=== PATIENT | female | born 1965 | race Caucasian/White ===

== ENCOUNTER 2018-04-06 11:27 | Emergency (ER) | payer OTHER ==
[~2018-04-06] VITALS: Ht 167.6 cm; Wt 77.1 kg
[~2018-04-06 11:27] MED LIST: ACET-2619 PO; BISA10SU1 RC; CEFT1PDS43 IV; COL100L GT; COM25S RC; DIL100L GT; GLAT20KI SUBQ; LAM25 PO; NUTR-813 GT; SIME80CT70 GT; VIC GT; ZALE10CA GT; [UNRECOGNIZED DRUG - CODE] GT
--- NOTE | 2018-04-06 11:27 | NUR ---
PT BIBA BLS TO BED 6
[2018-04-06 11:30] VITALS: BP 122/82
--- NOTE | 2018-04-06 12:07 | NUR ---
PATIENT BIBA. FROM [facility] DUE TO TYCHCADIA AND TACHPNEA, PT IS OPEN EYES ONLY, APHSIC, RESPONDS TO PAIFUL STIMILI, UNABLE TO FOLLOW COMMANDS, FLACC 0, NO S/S OF DISTRESS, TACHPNEA NOTED, ON O2 AT 4L VIA NC, NO S/S OF CHEST PAIN, TYCHCADIA NOTED, EXTENDED ABDOMEN WITH ACTIVE BOWEL SOUNDS, GT IN PLACE, INCONTINENT WITH B&B'S, SKIN IS INTACT,WARM AND DRY TO TOUCH, SEVERE WEAKNESS TO ALL EXTREMITES. PATIENT POSITIONED FOR COMFORT; HOB ELEVATED; BEDRAILS UP X2; BED DOWN. ER MD MADE AWARE OF PT STATUS.
--- NOTE | 2018-04-06 12:45 | NUR ---
# 14 FR Urinary catheter inserted utilizing sterile technique. Immediate return of 200 ml NICOLE CLEAR urine noted. Urine sample collected and sent to lab. Pt tolerated procedure WELL.
[2018-04-06 12:47] LABS: HEMATOCRIT 51.2 % (36-48); HEMOGLOBIN 16.8 g/dL (12.0-16.0); MEAN CORPUSCULAR HEMOGLOBIN 29 pg (27-31); MEAN CORPUSCULAR HGB CONC 33 g/dL (33-37); MEAN CORPUSCULAR VOLUME 88.7 fL (80-94); PLATELET COUNT (AUTO) 333 K/uL (140-450); RED BLOOD CELL COUNT(AUTO) 5.78 MIL/uL (4.20-5.40); RED CELL DISTRIBUTION WIDTH 13.3 % (11.6-13.7); WHITE BLOOD COUNT (AUTO) 26.5 K/uL (4.8-10.8)
[2018-04-06 13:03] LABS: LYMPHOCYTES % (MANUAL) 8 % (20-46); MONOCYTES % (MANUAL) 2 % (5-12)
[2018-04-06 13:11] LABS: PROTHROMBIN TIME 10.4 secs (10.8-13.4)
[2018-04-06 13:24] LABS: ALBUMIN 3.1 g/dL (3.4-5.0); ANION GAP 13.7 (8-16); CARBON DIOXIDE 30.4 mmol/L (21-32); CREATININE 0.6 mg/dL (0.6-1.3); POTASSIUM 4.1 mmol/L (3.5-5.1); TOTAL BILIRUBIN 0.8 mg/dL (0.0-1.0)
[2018-04-06 13:31] LABS: BILIRUBIN,URINE NEGATIVE (NEGATIVE); BLOOD, URINE TRACE-I (NEGATIVE); COLOR,URINE YELLOW (YELLOW); LEUKOCYTE ESTERASE ,URINE 1+ (NEGATIVE); NITRITE, URINE NEGATIVE (NEGATIVE); PH,URINE 7.5 (5.0-9.0); UGLUCOSE NEGATIVE (NEGATIVE)
[2018-04-06 13:45] LABS: RBC,URINE 11-20 (MOD) /HPF (0-5); WBC,URINE TOO MANY TO COUNT /HPF (0-5)
[2018-04-06 13:47] LABS: APPEARANCE,URINE SLIGHTLY CLOUDY (CLEAR)
--- NOTE | 2018-04-06 14:00 | NUR ---
PT IS RESTING IN BED, NO S/S OF DISTRESS, VSS, FLACC 0.
[2018-04-06] MEDS ORDERED: LEVOFLOXACIN 750 MG/D5W PREMIX 150 ML IV ONE (14:20)
[2018-04-06] MEDS ORDERED: NACL 0.9% 1,000 ML IV ONE ×2 (14:45)
[2018-04-06] MEDS ORDERED: NACL 0.9% 1,000 ML IV SCH (14:46)
[2018-04-06] MEDS ORDERED: ACETAMINOPHEN 325 MG TAB PO PRN (14:50)
[2018-04-06] MEDS ORDERED: ZOLPIDEM 5 MG TAB PO PRN (14:50)
[2018-04-06] MEDS ORDERED: ONDANSETRON 4 MG/2 ML VIAL IVP PRN (14:50)
[2018-04-06] MEDS ORDERED: HYDROcodone/APAP 7.5/325 MG 1 TAB PO PRN (14:50)
--- NOTE | 2018-04-06 15:00 | NUR ---
RED RUSHES NOTED AROUND THE IV SITE ON HAND TOWARDS TO FOREARM. LEVOQUIN HELD AT THIS TIME, ED MD MADE AWARE.
[2018-04-06] MEDS ORDERED: diphenhydrAMINE 50 MG/ML VIAL IVP ONE (15:25)
[2018-04-06 17:30] VITALS: BP 134/82
--- NOTE | 2018-04-06 17:30 | NUR ---
REPORT GIVEN TO CHRISTIE COHEN RN AT [facility], PT IS GOING TO ROOM 2158.
--- NOTE | 2018-04-06 17:35 | NUR ---
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
--- NOTE | 2018-04-06 17:55 | NUR ---
TIME RECORDER CALLED TO BEDSIDE TO ASSESS FOR PULMONARY HYGIENE PATIENT ASSESSMENT SATURATION 91% ON SUPPLEMENTAL OXYGEN AT 15 LPM VIA NON REBREATHER BREATH SOUNDS COARSE RHONCHI BILATERAL USING STERILE TECHNIQUE APPLIED LUBRICANT TO THE TIP OF A 14FR SUCTION CATHETER INSERTED INTO RIGH AND LEFT NARES OBTAINED COPIOUS AMOUNTS DARK RED (GASTRIC) AND YELLOW SECRETIONS SATURATION NOW ASCENDING TO 96% BREATH SOUNDS CLEAR TOFEW RALES AT LEFT LOWER LOBE PATIENT TOLERATED SUCTIONING PROCEDURE WELL WITHOUT ADVERSE REACTIONS NOTED ENEDINA SHARMA AWARE
[2018-04-06] MEDS ORDERED: DOCUSATE SODIUM 100 MG GELCAP PO SCH (21:00)
== END 2018-04-06 17:35 | disposition home or self-care (01) ==
LOC: MED 11:27
DX: K56.609 Unspecified intestinal obstruction, unspecified as to partial versus complete obstruction (principal); N39.0 Urinary tract infection, site not specified; N28.89 Other specified disorders of kidney and ureter; Z88.1 Allergy status to other antibiotic agents; Z88.0 Allergy status to penicillin; Z88.2 Allergy status to sulfonamides; Z79.899 Other long term (current) drug therapy
CPT/HCPCS: 36415; 36600; 71250; 74176; 80053; 81001; 82803; 83605; 83880; 84484; 85025; 85610; 85730; 87040; 87086; 93005; 96365; 96375; 99285; J1200; J1956; J7030; 96374; 99284

== ENCOUNTER 2018-11-02 13:54 | Emergency (ER) | payer OTHER ==
[~2018-11-02] VITALS: Ht 177.8 cm; Wt 81.6 kg
--- NOTE | 2018-11-02 13:55 | NUR ---
Patient STEFFANY BLS from SNF, transferred to bed 2. RN evaluating patient at bedside.
--- NOTE | 2018-11-02 14:00 | NUR ---
PT BIBA FOR CLOGGED G-TUBE; SKIN AROUND TUBE WNL;NO REDNESS OR DRIANAGE NOTED. PT NON VERBAL; NO SIGNS OF PAIN OBSERVED. MEDHX:G-TUBE, FUNCTIONAL QUADRIPLEGIC, HTN, EPILEPSY, KIDNEY STONE, MS; SEIZURE PRECAUTIONS INITIATED; PADDED SIDERAILS. CONNECTED TO STAFF ANESTHETIST; BED LOCKED AND IN LOWEST POSITION. ERMD TO EVALUATE PT.
[2018-11-02 14:02] VITALS: BP 115/73
--- NOTE | 2018-11-02 14:50 | NUR ---
MARLO HOWE AT BEDSIDE FOR NEW G TUBE PLACEMENT.
--- NOTE | 2018-11-02 15:05 | NUR ---
X RAY AT BEDSIDE FOR G-TUBE PLACEMENT
--- NOTE | 2018-11-02 16:15 | NUR ---
SPOKE WITH MEGAN SCHMIDT OCEANOGRAPHER PHYSICAL FROM [facility]. PT WILL TRANSFER BACK.
--- NOTE | 2018-11-02 16:18 | NUR ---
Patient to be transferred back to [facility]. Ambulance service has been called for transfer. ETA is 30 minutes.
[2018-11-02 16:48] VITALS: BP 112/68
--- NOTE | 2018-11-02 16:49 | NUR ---
Patient tranferred back to outside [facility] via ambulance. Pt left [facility] in a stable condition. Discharge paperwork provided.
== END 2018-11-02 16:49 ==
LOC: MED 13:54
DX: T85.598A Other mechanical complication of other gastrointestinal prosthetic devices, implants and grafts, initial encounter (principal); Z88.0 Allergy status to penicillin; Z88.1 Allergy status to other antibiotic agents; Z88.2 Allergy status to sulfonamides; Z79.899 Other long term (current) drug therapy; Z79.2 Long term (current) use of antibiotics; Z79.1 Long term (current) use of non-steroidal anti-inflammatories (NSAID); Z86.69 Personal history of other diseases of the nervous system and sense organs; Y83.8 Other surgical procedures as the cause of abnormal reaction of the patient, or of later complication, without mention of misadventure at the time of the procedure; Y92.89 Other specified places as the place of occurrence of the external cause
CPT/HCPCS: 43762; 74241; 99284; Q0092

== ENCOUNTER 2019-10-10 12:20 | Inpatient (IN) | payer OTHER ==
[~2019-10-10] VITALS: Ht 170.2 cm; Wt 51.7 kg
[2019-10-10 12:20] VITALS: BP 110/63
[~2019-10-10 12:20] MED LIST changes: -SIME80CT70 GT; +SIME80TA22 GT
--- NOTE | 2019-10-10 12:24 | NUR ---
BIBA TAKEN TO BED 10
[2019-10-10] MEDS ORDERED: NACL 0.9% 1,000 ML IV SCH (12:41)
[2019-10-10] MEDS ORDERED: LEVOFLOXACIN 500 MG/D5W PREMIX 100 ML IV ONE (12:45)
[2019-10-10] MEDS ORDERED: METO25TA GT (12:53)
[2019-10-10] MEDS ORDERED: ASCO500T95 GT (12:53)
[2019-10-10] MEDS ORDERED: KEP500L GT (12:53)
[2019-10-10] MEDS ORDERED: CRAN450T5 GT (12:53)
[2019-10-10] MEDS ORDERED: LACT1CAP59 GT (12:53)
[2019-10-10] MEDS ORDERED: GLAT20KI SUBQ (12:53)
[2019-10-10] MEDS ORDERED: MAGN400S60 PO (12:53)
[2019-10-10] MEDS ORDERED: PHEN100C3 GT (12:53)
[2019-10-10] MEDS ORDERED: SENN-72 GT (12:53)
[2019-10-10] MEDS ORDERED: MULT-1328 GT (12:53)
[2019-10-10 13:11] LABS: BASOPHILS # (AUTO) 0.1 K/uL (0.00-0.22); BASOPHILS % (AUTO) 0.6 % (0.0-2.0); HEMOGLOBIN 15.3 g/dL (12.0-16.0); LYMPHOCYTES # (AUTO) 0.9 K/uL (2.5-16.5); LYMPHOCYTES % (AUTO) 8.2 % (20.5-51.1); MEAN CORPUSCULAR HEMOGLOBIN 30 pg (27-31); MEAN CORPUSCULAR HGB CONC 34 g/dL (33-37); MEAN CORPUSCULAR VOLUME 87.4 fL (80-94); MONOCYTES # (AUTO) 1.1 K/uL (0.8-1.0); MONOCYTES % (AUTO) 10.1 % (1.7-9.3); NEUTROPHILS # (AUTO) 8.7 K/uL (1.8-7.7); NEUTROPHILS % (AUTO) 81.1 % (42.2-75.2); PLATELET COUNT (AUTO) 165 K/uL (140-450); RED BLOOD CELL COUNT(AUTO) 5.15 MIL/uL (4.20-5.40); RED CELL DISTRIBUTION WIDTH 13.5 % (11.6-13.7); WHITE BLOOD COUNT (AUTO) 10.7 K/uL (4.8-10.8)
[2019-10-10 13:33] LABS: ALBUMIN 2.8 g/dL (3.4-5.0); ANION GAP 12.7 (8-16); CARBON DIOXIDE 28.4 mmol/L (21-32); CREATININE 0.6 mg/dL (0.6-1.3); POTASSIUM 4.1 mmol/L (3.5-5.1); TOTAL BILIRUBIN 0.3 mg/dL (0.0-1.0)
--- NOTE | 2019-10-10 13:36 | NUR ---
XRAY IS AT BEDSIDE.
--- NOTE | 2019-10-10 14:14 | NUR ---
SMALL SOFT BM---CLEANED PT PRIOR TO STRAIGHT CATH NO BREAK IN SKIN NOTED IN THE BACK
[2019-10-10 15:43] LABS: APPEARANCE,URINE CLOUDY (CLEAR); BILIRUBIN,URINE NEGATIVE (NEGATIVE); BLOOD, URINE TRACE-I (NEGATIVE); COLOR,URINE YELLOW (YELLOW); LEUKOCYTE ESTERASE ,URINE TRACE (NEGATIVE); NITRITE, URINE NEGATIVE (NEGATIVE); PH,URINE 7.5 (5.0-9.0); UGLUCOSE NEGATIVE (NEGATIVE)
[2019-10-10] MEDS: NACL 0.9% 1,000 ML IV SCH (15:45)
--- NOTE | 2019-10-10 16:39 | NUR ---
INFLUENZA SWAB COLLECTED
--- NOTE | 2019-10-10 17:09 | NUR ---
REPORT GIVEN TO URSULA GUZMAN
--- NOTE | 2019-10-10 17:11 | NUR ---
OBTAINED REPORT FROM MURRAY GUZMAN FOR CONTINUITY OF CARE
--- NOTE | 2019-10-10 17:18 | NUR ---
PT RESTING IN BED, SIDE RAIL X2
--- NOTE | 2019-10-10 19:20 | NUR ---
RECEIVED REPORT FROM MEGAN VERGARA FOR CONTINUATION OF CARE.
--- NOTE | 2019-10-10 19:29 | NUR ---
PT RESTING IN BED, LOCKED AND IN LOWEST POSITION ,HOB ELEVATED , SIDE RAIL X2 FOR PT SAFETY . VISIBLE RISE AND FALL OF CHEST, RR EVEN AND UNLABORED , PT CONNECTED TO TELEMONITORING.
--- NOTE | 2019-10-10 21:17 | NUR ---
PT RESTING IN BED, LOCKED AND IN LOWEST POSITION ,HOB ELEVATED, SIDE RAIL X2 FOR PT SAFETY, VISIBLE RISE AND FALL OF CHEST, RR EVEN AND UNLABORED, VSS.
--- NOTE | 2019-10-10 23:27 | NUR ---
DR. MATHEWS AT BEDSIDE FOR EVALUATION.
[2019-10-10] MEDS ORDERED: MAGNESIUM HYDROXIDE 2400 MG/30 ML UDC PO PRN (23:55)
[2019-10-10] MEDS ORDERED: bisacodyL 10 MG SUPP RC PRN (23:55)
--- NOTE | 2019-10-10 23:57 | NUR ---
PT SLEEPING , BED LOCKED AND IN LOWEST POSITION ,HOB ELEVATED, SIDE RAIL X2 FOR PT SAFETY, AROUSABLE TO VERBAL STIMULATION, VISIBLE RISE AND FALL OF CHEST, RR EVEN AND UNLABORED, VSS.
[2019-10-11] MEDS ORDERED: ONDANSETRON 4 MG/2 ML VIAL IM/IVP PRN (00:05)
[2019-10-11] MEDS ORDERED: MORPHINE SULFATE 2 MG/ML SYR IVP PRN (00:05)
[2019-10-11] MEDS ORDERED: HYDROcodone/APAP 5/325 MG 1 TAB TAB PO PRN (00:05)
[2019-10-11] MEDS ORDERED: DOCUSATE SODIUM 100 MG GELCAP PO PRN (00:05)
--- NOTE | 2019-10-11 00:19 | NUR ---
MRSA SWAB COLLECTED.
[2019-10-11 01:57] LABS: CHOL/HDL RATIO 2.6 (1-4.5); THYROID STIMULATING HORMONE 0.17 uIU/mL (0.34-3.74)
[2019-10-11] MEDS: NACL 0.9% 1,000 ML IV SCH ×3 (02:06→22:13)
--- NOTE | 2019-10-11 05:55 | NUR ---
LAB AT BEDSIDE.
--- NOTE | 2019-10-11 06:16 | NUR ---
RT AT BEDSIDE FOR EKG.
[2019-10-11 06:55] LABS: BASOPHILS % (AUTO) 0.6 % (0.0-2.0); HEMATOCRIT 37.4 % (36-48); HEMOGLOBIN 12.4 g/dL (12.0-16.0); LYMPHOCYTES # (AUTO) 1.5 K/uL (2.5-16.5); LYMPHOCYTES % (AUTO) 22.9 % (20.5-51.1); MEAN CORPUSCULAR HEMOGLOBIN 29 pg (27-31); MEAN CORPUSCULAR HGB CONC 33 g/dL (33-37); MEAN CORPUSCULAR VOLUME 87.6 fL (80-94); MONOCYTES % (AUTO) 15.3 % (1.7-9.3); NEUTROPHILS % (AUTO) 61.2 % (42.2-75.2); PLATELET COUNT (AUTO) 139 K/uL (140-450); RED BLOOD CELL COUNT(AUTO) 4.26 MIL/uL (4.20-5.40); RED CELL DISTRIBUTION WIDTH 13.3 % (11.6-13.7); WHITE BLOOD COUNT (AUTO) 6.5 K/uL (4.8-10.8)
[2019-10-11 07:13] LABS: ANION GAP 10.9 (8-16); CARBON DIOXIDE 25.6 mmol/L (21-32); CREATININE 0.4 mg/dL (0.6-1.3); POTASSIUM 3.5 mmol/L (3.5-5.1)
[2019-10-11 07:18] LABS: MAGNESIUM 1.5 mg/dL (1.8-2.4); PHOSPHORUS 1.6 mg/dL (2.5-4.9)
[2019-10-11 07:30] VITALS: BP 105/61
--- NOTE | 2019-10-11 07:30 | NUR ---
REPORT RECEIVED FROM ER NURSE CHIQUI. PT CAME TO UNIT IN [facility]. VIALS SIGNS TAKEN. BLOOD PRESSURE AT 105/61. SKIN INTACT. PT IS ON 2L MC O2. O2 SATS AT 94%. IV LINE INTACT AND PATENT. NOTED WITH CONTRACTED BILATERAL HAND. PT HAD A BOWEL MOVEMENT. ADMISSION ORDERS RECEIVED. BED IN LOW POSITION. NO BELONGINGS WITH PATIENT. G TUBE IN PLACE. ZERO RESIDUAL NOTED AT THIS TIME. G TUBE PLACEMENT CHECKED. MORNING MEDICATIONS GIVEN THROUGH G TUBE. CALL LIGHT IN REACH. WILL CONTINUE TO MONITOR.
--- NOTE | 2019-10-11 07:30 | NUR ---
Patient will be admitted to care of DR. MATHEWS. Admited to TELEMETRY. Will go to room 131B. Belongings list completed. Report to MEGAN SMITH.
[2019-10-11] MEDS: METOPROLOL 25 MG TAB GT SCH ×3 (09:00→21:59)
[2019-10-11] MEDS ORDERED: NON-FORMULARY ITEM (Cranberry Fruit (Cranberry) 450 MG) GT SCH (09:00)
[2019-10-11] MEDS ORDERED: NON-FORMULARY ITEM (Lactobacillus Acidophilus (Acidophilus) 1 EACH) GT SCH (09:00)
[2019-10-11] MEDS ORDERED: NON-FORMULARY ITEM (Multivitamin with Minerals (Multivitamins with Minerals) 1 TAB) GT SCH (09:00)
--- NOTE | 2019-10-11 09:30 | NUR ---
PT REPOSITIONED. IV INFUSING. MORNING MEDS GIVEN THROUGH G TUBE. VITAL SIGNS NORMAL. WILL CONTINUE TO MONITOR. CALL LIGHT IN REACH.
[2019-10-11] MEDS: MULTIVITAMIN/MINERALS 1 TAB GT SCH (09:40)
[2019-10-11] MEDS: PHENYTOIN 100 MG CAPER PO SCH ×2 (09:40→21:59)
[2019-10-11] MEDS: lamoTRIgine 25 MG TAB PO SCH ×2 (09:40→21:58)
[2019-10-11] MEDS: DOCUSATE 100 MG/10 ML UDC GT SCH ×2 (09:41→21:58)
[2019-10-11] MEDS: LEVOFLOXACIN 500 MG/D5W PREMIX 100 ML IV SCH (09:41)
[2019-10-11] MEDS: levETIRAcetam 100 MG/ML ORASYR GT SCH ×2 (09:41→21:58)
[2019-10-11] MEDS: ASCORBIC ACID 500 MG TAB GT SCH ×2 (09:41→21:59)
[2019-10-11] MEDS: LACTOBACILLUS RHAMNOSUS GG 1 EACH CAP GT SCH (09:41)
[2019-10-11] MEDS ORDERED: CRUSHER, PILL MC ONE (09:44)
--- NOTE | 2019-10-11 09:49 | NUR ---
PATIENT HAS BEEN SCREENED AND CATEGORIZED MODERATE NUTRITION RISK. PATIENT WILL BE SEEN WITHIN 3-5 DAYS OF ADMISSION. 10/12/19 10/14/[address]
[2019-10-11 12:00] VITALS: BP 107/65
--- NOTE | 2019-10-11 12:30 | NUR ---
PT O2 SATS AT 94%. VITAL SIGNS NORMAL. CALL LIGHT IN REACH.
--- NOTE | 2019-10-11 13:23 | NUR ---
INSPECTOR AND CLERK NOTE: Patient's Orientation Unable To Assess Information Provided By RUSSELL Quigley [facility] Comments SW WAS UNABLE TO MEET PATIENT AT BEDSIDE DUE TO MEDICAL CONDITION. PER RUSSELL, IDT TEAM IS MEDICAL DECISION MAKER. RUSSELL STATED THAT FAMILY IS NOT INVOLVED IN PATIENT'S CARE. Newborn Photographer, Realtionship and Phone Number ABDIEL SMITH [phone] Identifying Problems No Social Work Triggers Is A Social Work Consult Needed No Mandate Report Filed No Explanation Of Identifying Problems PATIENT IS A 54-YEAR-OLD FEMLAE ADMITTED FOR FEVER/UTI. PATIENT HAS PMHX OF HTN, SEIZURE, CONSTIPATION, UTI, AND GERD. [facility] - [phone] Pre-Admission Level Of Functioning Status Total Care Prior Resources/Services Used In Last 12 Months SNF Correction Care Prior DME Hospital Bed Patient Had Caregiver No Home Support No Caregiver Issues Financial Issues No Known Financial Issue Factors/Needs SNF/NH Placement Explanation And Or Other Factors Affecting/Possible DC Needs PATIENT IS CORRECTION AND ON A BED HOLD. Discharge Plan Comments TENTATIVE DISCHARGE PLAN IS FOR PATIENT TO RETURN TO [facility].
--- NOTE | 2019-10-11 14:59 | NUR ---
PT REPOSITIONED TO LEFT SIDE. O2 SATS IS CONSTANT AT 94%. PT IS ON 2L O2 NC. NO DISTRESS. WILL CONTINUE TO MONITOR.
[2019-10-11 16:00] VITALS: BP 114/71
--- NOTE | 2019-10-11 17:00 | NUR ---
PT WAS REPOSITIONED. NOTIFIED DR ABOUT G TUBE FEEDING AND CODE STATUS. VITAL SIGNS NORMAL. O2 SATS AT 94%. WILL CONTINUE TO MONITOR. CALL LIGHT IN REACH.
--- NOTE | 2019-10-11 19:29 | NUR ---
SHIFT REPORT GIVEN TO NIGHT NURSE FOR CONTINUATION OF CARE. PT IN STABLE CONDITION. CALL LIGHT IN REACH
--- NOTE | 2019-10-11 19:30 | NUR ---
RECEIVED BEDSIDE ENDORSEMENT FROM AM SHIFT RN. PATIENT IS ON 2L NC, NO SOB, O2 SAT WNL. G-TUBE INTACT AND PATENT. FALL RISK PROTOCOL IN PLACE, DROPLET PRECAUTION OBSERVED. PLAN OF CARE DISCUSSED. CALL LIGHT WITHIN REACH. WILL CONTINUE TO MONITOR.
[2019-10-11] MEDS ORDERED: PHENYTOIN 100 MG/4 ML UDC GT ONE (19:35)
[2019-10-11 20:00] VITALS: BP 107/64
[2019-10-11] MEDS ORDERED: GLATIRAMER ACETATE 20 MG SUBQ SCH (21:00)
[2019-10-11] MEDS: SENNA 8.6 MG TAB GT SCH (21:58)
--- NOTE | 2019-10-11 21:58 | NUR ---
HOB ELEVATED. CHECKED GT PLACEMENT AND PATENCY. NO RESIDUAL NOTED. DUE MEDS GIVEN ORDERED. TOLERATED WELL.
[2019-10-11] MEDS: ACETAMINOPHEN 325 MG TAB PO PRN (22:09)
--- NOTE | 2019-10-11 22:09 | NUR ---
TYLENOL 650 MG GT GIVEN FOR FEVER. TEMP OF 100.9 AND [address] MEASURES IN PLACE.
--- NOTE | 2019-10-11 22:30 | NUR ---
RECEIVED ORDER RE: GRAM + COCCI & CLUSTERED TO CONSULT DR. DUMONT. NOTED AND CARRIED OUT.
[2019-10-11] MEDS ORDERED: PHENYTOIN 100 MG/4 ML UDC ONE (22:44)
[2019-10-12] VITALS: BP 106/60
--- NOTE | 2019-10-12 00:45 | NUR ---
PATIENT CARE DONE WITH THE HELP OF KEE EYN. KEPT CLEAN, DRY AND COMFORTABLE, V/S TAKEN AND RECORDED. AFEBRILE. 98.1. NO SOB
[2019-10-12 04:00] VITALS: BP 114/62
--- NOTE | 2019-10-12 04:36 | NUR ---
V/S TAKEN. PATIENT IS ASLEEP. RESPIRATION EVEN AND UNLABORED, NO SOB.
[2019-10-12] MEDS: NACL 0.9% 1,000 ML IV SCH ×2 (05:37→13:56)
[2019-10-12 06:23] LABS: BASOPHILS % (AUTO) 0.6 % (0.0-2.0); EOSINOPHILS % (AUTO) 0.1 % (0.0-4.0); HEMATOCRIT 38.9 % (36-48); LYMPHOCYTES # (AUTO) 1.6 K/uL (2.5-16.5); LYMPHOCYTES % (AUTO) 25.7 % (20.5-51.1); MEAN CORPUSCULAR HEMOGLOBIN 30 pg (27-31); MEAN CORPUSCULAR HGB CONC 33 g/dL (33-37); MEAN CORPUSCULAR VOLUME 88.9 fL (80-94); MONOCYTES # (AUTO) 0.8 K/uL (0.8-1.0); MONOCYTES % (AUTO) 13.2 % (1.7-9.3); NEUTROPHILS # (AUTO) 3.8 K/uL (1.8-7.7); NEUTROPHILS % (AUTO) 60.4 % (42.2-75.2); PLATELET COUNT (AUTO) 141 K/uL (140-450); RED BLOOD CELL COUNT(AUTO) 4.38 MIL/uL (4.20-5.40); RED CELL DISTRIBUTION WIDTH 13.3 % (11.6-13.7); WHITE BLOOD COUNT (AUTO) 6.4 K/uL (4.8-10.8)
[2019-10-12 06:35] LABS: ANION GAP 12.7 (8-16); CARBON DIOXIDE 26.1 mmol/L (21-32); CREATININE 0.5 mg/dL (0.6-1.3); POTASSIUM 3.8 mmol/L (3.5-5.1)
[2019-10-12 07:18] LABS: MAGNESIUM 1.8 mg/dL (1.8-2.4); PHOSPHORUS 2.1 mg/dL (2.5-4.9)
--- NOTE | 2019-10-12 07:19 | NUR ---
PATIENT IS IN STABLE CONDITION. ENDORSED TO AM SHIFT RN FOR CONTINUITY OF CARE.
--- NOTE | 2019-10-12 07:19 | NUR ---
RECEIVED REPORT FROM PM RN, WALKER. C/O FEVER. DX: UTI, FEVER, +COVID. HX: MS, HTN, EPILEPSY, PNEUMONIA. ALLERGIES: PENICILLIN, SULFA ANTIBIOTICS. NORMAL SR. CODE: DNR. IV RT HAND 22G 100ML/HE NS. DIET G TUBE. LT ARM CONTRACTIONS. GRAM + COCCI CLUSTER. FOLLOW UP WITH PHYSICIAN ABOUT FEEDING.
[2019-10-12 08:00] VITALS: BP 83/36
[2019-10-12] MEDS: LEVOFLOXACIN 500 MG/D5W PREMIX 100 ML IV SCH (09:00)
[2019-10-12 09:10] LABS: T4 (THYROXINE) 5.1 ug/dL (4.5-12.0)
[2019-10-12] MEDS: DOCUSATE 100 MG/10 ML UDC GT SCH ×2 (09:31→22:07)
[2019-10-12] MEDS: ASCORBIC ACID 500 MG TAB GT SCH ×2 (09:32→22:08)
[2019-10-12] MEDS: levETIRAcetam 100 MG/ML ORASYR GT SCH ×2 (09:32→22:07)
[2019-10-12] MEDS: LACTOBACILLUS RHAMNOSUS GG 1 EACH CAP GT SCH (09:32)
[2019-10-12] MEDS: PHENYTOIN 100 MG CAPER PO SCH ×2 (09:32→22:08)
[2019-10-12] MEDS: lamoTRIgine 25 MG TAB PO SCH ×2 (09:33→22:07)
[2019-10-12] MEDS: MULTIVITAMIN/MINERALS 1 TAB GT SCH (09:33)
[2019-10-12] MEDS: METOPROLOL 25 MG TAB GT SCH ×2 (09:35→22:09)
--- NOTE | 2019-10-12 10:00 | NUR ---
no signs of allergic reaction to medications.
[2019-10-12 12:00] VITALS: BP 116/65
--- NOTE | 2019-10-12 12:00 | NUR ---
pt is resting in bed. respirations even and unlabored. will continue to monitor
--- NOTE | 2019-10-12 12:00 | NUR ---
pt had 100.8 fever. physician notified. tylenol given. placed order for g tube feeding.
--- NOTE | 2019-10-12 13:26 | NUR ---
DC PLANN[age] YRS OLD FEMALE PATIENT WAS ADMITTED [place] [facility] [place] DX OF FEVER UTI. PT HAS A HX OF MS, HTN, AND SEIZURE. CXR SHOWED MILD INTERSTITIAL PULMONARY EDEMA . BLOOD AND URINE CULTURE PENDING. COVID TEST POSITIVE . ADMINISTERED IVF, IV ABX LEVAQUIN.CONSULTED WITH DR TIM SCHROEDER. DC PLAN TO GO BACK TO [facility] WHEN STABLE. CM TO FOLLOW Addendum: 10/13/19 at 1528 by Mag Min CM DC PLANNING: PATIENT IS ACCEPTING AT [facility] CAN GO TO ROOM [facility] # TO GIVE REPORT [phone] AUTH # [id number] ARRANGED TRANSPORT WITH [facility] [phone] AUDIT SENIOR ASSOCIATE TIME 1999 NOTIFIED MALU GUZMAN.
[2019-10-12] MEDS: ACETAMINOPHEN 325 MG TAB PO PRN ×2 (13:42→23:34)
[2019-10-12] MEDS ORDERED: VANCOMYCIN PER PHARMACY MC PRN (14:45)
[2019-10-12 16:00] VITALS: BP 94/52
--- NOTE | 2019-10-12 16:00 | NUR ---
minor redness on buttocks. only a scratch.
--- NOTE | 2019-10-12 16:30 | NUR ---
fever decreased to 99.5. waiting for feeding and pump. will continue to monitor.
[2019-10-12] MEDS: VANCOMYCIN 750 MG in DEXTROSE 5% 250 ML IV SCH (16:58)
--- NOTE | 2019-10-12 19:20 | NUR ---
transfer of care to pm rn. pt is resting in bed. no signs of distress.
--- NOTE | 2019-10-12 19:21 | NUR ---
RECD. RESTING IN BED, AWAKE, APHASIC. RESPIRATION EVEN AND UNLABORED. ON 02 AT 3 LITERS VIA N/C, 02 SAT - 98%.IV OF NS AT 100 L/HR INFUSING, RIGHT WRIST G22. BILATERAL UPPER EXTREMITIES CONTRACTED. GT TUBE INTACT WITH GAUZE DRESSING. SAFETY MEASURES ENFORCED. SIDE RAILS WITH PADS FOR SEIZURE PRECAUTION. PLAN OF CARE DISCUSSED. NEEDSS REINFORCEMENT. NO APPEARANCE OF PAIN NOTED, FLACC -0.
--- NOTE | 2019-10-12 19:30 | NUR ---
Patient's Plan of Care was discussed and reviewed with PERFORMANCE INSTRUCTOR: AIDE. WILL ROUND FREQUENTLY.
[2019-10-12] MEDS ORDERED: ALBUTEROL HFA MDI 90 MCG/ACTUATION 8 GM INH PRN (19:35)
[2019-10-12] MEDS ORDERED: LOVENOX 1MG/KG Q12H SUBQ SCH (19:45)
[2019-10-12] MEDS ORDERED: PHENYTOIN 1,000 MG in NACL 0.9% 100 ML IV ONE (19:45)
[2019-10-12 20:00] VITALS: BP 112/60
--- NOTE | 2019-10-12 22:00 | NUR ---
SIMONE FOR ASSISTANT PROGRAM DIRECTOR SABRINA TAM.
[2019-10-12] MEDS: ZINC SULF 220 MG CAP PO SCH (22:08)
[2019-10-12] MEDS: SENNA 8.6 MG TAB GT SCH (22:11)
--- NOTE | 2019-10-12 23:45 | NUR ---
Called Vikram Pharmacist, due to not enough dilantin 1000mg in ER (4 vials; 100mg/vial), ICU (5 vials; 100mg/vial)
--- NOTE | 2019-10-12 23:45 | NUR ---
SCOTT PHARMACIST WILL COME, DILANTIN IN THE PYXIS IS NOT ENOUGH.
[2019-10-12] MEDS ORDERED: PHENYTOIN 100 MG/2 ML VIAL IVP ONE (23:46)
[2019-10-13] VITALS: BP 96/55
--- NOTE | 2019-10-13 00:30 | NUR ---
Vikram came around 0030 am
--- NOTE | 2019-10-13 00:52 | NUR ---
Vikram gave 100mg dilantin and will give to MST nurse
[2019-10-13] MEDS ORDERED: PHENYTOIN 1,000 MG in NACL 0.9% 100 ML IV SCH (01:00)
--- NOTE | 2019-10-13 01:09 | NUR ---
DILANTIN IVPB INFUSED BY MEGAN EDMONDSON. TOLERATED WELL.
[2019-10-13] MEDS: NACL 0.9% 1,000 ML IV SCH ×4 (01:37→12:50)
--- NOTE | 2019-10-13 03:00 | NUR ---
IV INFILTRATED, WILL INSERT NEW IV LINE.
[2019-10-13 04:00] VITALS: BP 91/43
[2019-10-13] MEDS: VANCOMYCIN 750 MG in DEXTROSE 5% 250 ML IV SCH (04:18)
--- NOTE | 2019-10-13 05:00 | NUR ---
NEW IV LINE INSERTED BY CHARGE NURSE YINA AT THE RIGHT WRIST G22.
[2019-10-13 05:54] LABS: BASOPHILS % (AUTO) 0.2 % (0.0-2.0); EOSINOPHILS % (AUTO) 0.1 % (0.0-4.0); HEMATOCRIT 36.8 % (36-48); HEMOGLOBIN 12.2 g/dL (12.0-16.0); LYMPHOCYTES # (AUTO) 1.4 K/uL (2.5-16.5); LYMPHOCYTES % (AUTO) 40.9 % (20.5-51.1); MEAN CORPUSCULAR HEMOGLOBIN 29 pg (27-31); MEAN CORPUSCULAR HGB CONC 33 g/dL (33-37); MEAN CORPUSCULAR VOLUME 87.9 fL (80-94); MONOCYTES # (AUTO) 0.4 K/uL (0.8-1.0); MONOCYTES % (AUTO) 12.7 % (1.7-9.3); NEUTROPHILS # (AUTO) 1.6 K/uL (1.8-7.7); NEUTROPHILS % (AUTO) 46.1 % (42.2-75.2); PLATELET COUNT (AUTO) 130 K/uL (140-450); RED BLOOD CELL COUNT(AUTO) 4.19 MIL/uL (4.20-5.40); RED CELL DISTRIBUTION WIDTH 12.8 % (11.6-13.7); WHITE BLOOD COUNT (AUTO) 3.4 K/uL (4.8-10.8)
[2019-10-13 06:18] LABS: ALBUMIN 2.2 g/dL (3.4-5.0); ANION GAP 10.9 (8-16); CARBON DIOXIDE 27.1 mmol/L (21-32); CREATININE 0.6 mg/dL (0.6-1.3); TOTAL BILIRUBIN 0.2 mg/dL (0.0-1.0)
[2019-10-13 06:21] LABS: MAGNESIUM 1.4 mg/dL (1.8-2.4); PHOSPHORUS 1.8 mg/dL (2.5-4.9)
--- NOTE | 2019-10-13 07:14 | NUR ---
NO MORE FEVER, TEMPERATURE - 98.8F. NO SEIZURE NOTED DURING SHIFT. CONDITION REMAIN STABLE. ENDORSED TO AM SHIFT NURSE FOR CONTINUITY OF CARE.
--- NOTE | 2019-10-13 07:15 | NUR ---
REPORT GIVEN BY NIGHT NURSE. PATIENT IS IN BED, HOB ELEVATED. O2 ON @ 2L NC. O2 SAT 97%. PATIENT IS AOX0, GCS 6. SKIN WARM AND DRY TO TOUCH. RESPIRATIONS EVEN AND UNLABORED. IV INTACT AND PATENT TO RIGHT WRIST WITH IVF NS @100ML/HR. PATIENT WITH GT FEEDING JEVITY 1.2 @ 57ML/HR. TOLERATING WELL. GT INTACT AND PATENT. PLANS OF CARE DISCUSSED. BED IN LOW POSITION. BED ALARM ON. CALL LIGHT WITHIN REACH.
[2019-10-13 08:00] VITALS: BP 88/44
[2019-10-13] MEDS ORDERED: ENOXAPARIN 60 MG/0.6 ML SYR SUBQ SCH (09:00)
[2019-10-13] MEDS: METOPROLOL 25 MG TAB GT SCH (09:00)
[2019-10-13] MEDS ORDERED: ASCORBIC ACID 500 MG TAB GT SCH (09:00)
[2019-10-13] MEDS ORDERED: VITAMIN D 400 IU TAB PO SCH (09:00)
[2019-10-13] MEDS: LEVOFLOXACIN 500 MG/D5W PREMIX 100 ML IV SCH (10:07)
[2019-10-13] MEDS: DOCUSATE 100 MG/10 ML UDC GT SCH (10:07)
[2019-10-13] MEDS: levETIRAcetam 100 MG/ML ORASYR GT SCH (10:08)
[2019-10-13] MEDS: MULTIVITAMIN/MINERALS 1 TAB GT SCH (10:08)
[2019-10-13] MEDS: LACTOBACILLUS RHAMNOSUS GG 1 EACH CAP GT SCH (10:08)
[2019-10-13] MEDS: PHENYTOIN 100 MG CAPER PO SCH (10:10)
[2019-10-13] MEDS: lamoTRIgine 25 MG TAB PO SCH (10:10)
[2019-10-13] MEDS: ZINC SULF 220 MG CAP PO SCH (10:11)
--- NOTE | 2019-10-13 11:50 | NUR ---
DR. MATHEWS MADE AWARE OF PATIENT'S MG 1.4, POTASSIUM 3.0 AND DECREASED BP TODAY 88/43-90/43. RECEIVED ORDER TO GIVE NS 1L BOLUS.
[2019-10-13 12:00] VITALS: BP 96/60
[2019-10-13] MEDS ORDERED: MAG SULF 2000 MG/WATER PREMIX 50 ML IV PRN (12:15)
[2019-10-13] MEDS ORDERED: POTASSIUM CHLORIDE 10 MEQ TABER PO PRN (12:15)
[2019-10-13] MEDS ORDERED: VITC500 GT (12:33)
[2019-10-13] MEDS ORDERED: LOV60I SUBQ (12:33)
[2019-10-13] MEDS ORDERED: DEXA6TAB1 PO (12:33)
[2019-10-13] MEDS ORDERED: LACT10CA GT (12:33)
[2019-10-13] MEDS ORDERED: PIPE1SOL IV (12:52)
[2019-10-13] MEDS ORDERED: ZINC220T4 PO (12:55)
[2019-10-13] MEDS ORDERED: [UNRECOGNIZED DRUG - CODE] PO (12:55)
[2019-10-13] MEDS ORDERED: POTASSIUM PHOSPHATE 15 MM in NACL 0.9% 250 ML IV SCH (13:00)
--- NOTE | 2019-10-13 13:00 | NUR ---
MAG RIDER STARTED ORDERED FOR MAG LEVEL BEOW 1.8. PATIENT REMAINS STABLE. BP 96/60.
--- NOTE | 2019-10-13 14:06 | NUR ---
10/13/19 RD INITIAL ASSESSMENT COMPLETED PLEASE REFER TO NUTRITION ASSESSMENT UNDER CARE ACTIVITY FOR ESTIMATED NUTRITIONAL NEEDS. 1. CONTINUE GLUCERNA 1.2 @ 57 ML/HR X 24 HR -THIS WILL PROVIDE 1103 ML OF WATER, 1641 KCAL AND 82 GM OF PROTEIN 2. RECOMMEND FREE WATER FLUSH [address] TO FOLLOW-UP 2-3 DAYS, HIGH RISK OMERO OREILLY, RD
[2019-10-13 15:10] LABS: MAGNESIUM 2.1 mg/dL (1.8-2.4)
--- NOTE | 2019-10-13 15:30 | NUR ---
PATIENT REMAINS STABLE. POTASSIUM PHOSPHATE STARTED.
[2019-10-13 16:00] VITALS: BP 90/60
[2019-10-13] MEDS ORDERED: VANCOMYCIN 1,000 MG in DEXTROSE 5% 250 ML IV SCH (16:00)
[2019-10-13 16:05] LABS: ANION GAP 17.3 (8-16); CARBON DIOXIDE 20.2 mmol/L (21-32); CREATININE 0.3 mg/dL (0.6-1.3); POTASSIUM 3.5 mmol/L (3.5-5.1)
--- NOTE | 2019-10-13 16:30 | NUR ---
VS STABLE. PATIENT CHANGED FOR COMFORT. [place] BE [place] [facility]
--- NOTE | 2019-10-13 18:05 | NUR ---
PATIENT IS FOR DISCHARGE TODAY. PER CM SHEET METAL INSTALLER AT 1999 BY [facility]. REPORT GIVEN TO [facility] MEGAN ASHRAF.
--- NOTE | 2019-10-13 18:53 | NUR ---
PATIENT IN STABLE CONDITION. WILL ENDORSE TO NIGHT NURSE.
--- NOTE | 2019-10-13 19:30 | NUR ---
RECEIVED PT IN STABLE CONDITION FROM AM NURSE. BEDREST. WITH IVF INFUSING WELL. GT IN PLACED. FOR DC TO [facility] AT 1999. WILL CONTINUE TO MONITOR.
--- NOTE | 2019-10-13 20:05 | NUR ---
PT G-TUBE IN PLACE SALINE FLUSH, IV ACCESS SALINE FLUSH, PATENT, INTACT, ASYMPTOMATIC, SALINE LOCK. ON O2 2L N/C
--- NOTE | 2019-10-13 22:10 | NUR ---
[facility] HERE. PT HL FLUSHED WITH NS. CLEAR AND PATENT. GT FEEDING STOPPED. FLUSHED AND IT IS ALSO PATENT. DISCHARGE PT TO [facility] ROOM 34 A IN STABLE CONDITION. ALL DC PAPERS WITH PT/TRANSPORTER.
== END 2019-10-13 20:10 | DRG 871 ==
LOC: MED 12:20 → MMU 16:21 → UNDODEPER 20:47 → MMU 10-11 06:56 → MTU 10-11 09:29
DX: A41.89 Other specified sepsis (principal); U07.1 COVID-19; G82.50 Quadriplegia, unspecified; J96.01 Acute respiratory failure with hypoxia; J12.89 Other viral pneumonia; N39.0 Urinary tract infection, site not specified; E44.0 Moderate protein-calorie malnutrition; Z68.1 Body mass index [BMI] 19.9 or less, adult; G35 Multiple sclerosis; B96.89 Other specified bacterial agents as the cause of diseases classified elsewhere; E87.6 Hypokalemia; E83.42 Hypomagnesemia; G40.909 Epilepsy, unspecified, not intractable, without status epilepticus; K21.9 Gastro-esophageal reflux disease without esophagitis; Z93.1 Gastrostomy status; Z88.0 Allergy status to penicillin; Z88.8 Allergy status to other drugs, medicaments and biological substances; I10 Essential (primary) hypertension; K59.00 Constipation, unspecified; E83.39 Other disorders of phosphorus metabolism; Z88.1 Allergy status to other antibiotic agents; Z88.2 Allergy status to sulfonamides
CPT/HCPCS: 36415; 51702; 71045; 80048; 80053; 80185; 80202; 81001; 82140; 82150; 82550; 82553; 83036; 83605; 83690; 83735; 83880; 84100; 84134; 84436; 84443; 84484; 85025; 85379; 85610; 85651; 85730; 86140; 87040; 87081; 87086; 87186; 87804; 93005; 96365; 96366; 99285; J0696; J1165; J1644; J1650; J1956; J3370; J3475; J7030; J7060; Q0092; U0003-CS

== ENCOUNTER 2019-10-16 18:39 | Emergency (ER) | payer OTHER, SELFPAY ==
[~2019-10-16] VITALS: Ht 162.6 cm; Wt 81.6 kg
[~2019-10-16 18:39] MED LIST changes: -ACET-2619 PO; +ASCO500T95 GT; -CEFT1PDS43 IV; -COM25S RC; +CRAN450T5 GT; +DEXA6TAB1 PO; -DIL100L GT; +KEP500L GT; +LACT10CA GT; +LACT1CAP59 GT; +LOV60I SUBQ; +MAGN400S60 PO; +METO25TA GT; +MULT-1328 GT; -NUTR-813 GT; +PHEN100C3 GT; +PIPE1SOL IV; +SENN-72 GT; -SIME80TA22 GT; -VIC GT; +VITC500 GT; -ZALE10CA GT; +ZINC220T4 PO; -[UNRECOGNIZED DRUG - CODE] GT; +[UNRECOGNIZED DRUG - CODE] PO
[2019-10-16 18:43] VITALS: BP 111/54
[2019-10-16 20:37] LABS: CARBON DIOXIDE 25.5 mmol/L (21-32); POTASSIUM 4.5 mmol/L (3.5-5.1)
[2019-10-16 20:38] LABS: CREATININE 0.4 mg/dL (0.6-1.3); PHENOBARBITAL < 1 ug/ml (15-40); PHENYTOIN (DILANTIN) 6.2 ug/ml (10.0-20.0)
[2019-10-16 20:46] LABS: HEMATOCRIT 41.4 % (36-48); HEMOGLOBIN 13.5 g/dL (12.0-16.0); MEAN CORPUSCULAR HEMOGLOBIN 29 pg (27-31); MEAN CORPUSCULAR HGB CONC 33 g/dL (33-37); MEAN CORPUSCULAR VOLUME 88.8 fL (80-94); PLATELET COUNT (AUTO) 154 K/uL (140-450); RED BLOOD CELL COUNT(AUTO) 4.66 MIL/uL (4.20-5.40); RED CELL DISTRIBUTION WIDTH 13.5 % (11.6-13.7); WHITE BLOOD COUNT (AUTO) 3.7 K/uL (4.8-10.8)
[2019-10-16 21:19] LABS: LYMPHOCYTES % (MANUAL) 28 % (20-46); MONOCYTES % (MANUAL) 11 % (5-12)
[2019-10-16 22:13] LABS: APPEARANCE,URINE CLEAR (CLEAR); COLOR,URINE YELLOW (YELLOW)
[2019-10-16 22:14] LABS: BILIRUBIN,URINE NEGATIVE (NEGATIVE); BLOOD, URINE NEGATIVE (NEGATIVE); LEUKOCYTE ESTERASE ,URINE NEGATIVE (NEGATIVE); NITRITE, URINE NEGATIVE (NEGATIVE); PH,URINE 7.5 (5.0-9.0); UGLUCOSE NEGATIVE (NEGATIVE)
[2019-10-16] MEDS ORDERED: PHENYTOIN 100 MG/2 ML VIAL IVP ONE (22:20)
[2019-10-17] MEDS ORDERED: PHENYTOIN 100 MG/2 ML VIAL IVP ONE (03:26)
[2019-10-17] MEDS ORDERED: PHENYTOIN 100 MG/4 ML UDC GT ONE (13:25)
[2019-10-17] MEDS ORDERED: levETIRAcetam 500 MG TAB GT ONE (13:25)
[2019-10-17] MEDS ORDERED: lamoTRIgine 25 MG TAB GT ONE (13:30)
[2019-10-17] MEDS ORDERED: levETIRAcetam 100 MG/ML ORASYR GT ONE (13:30)
[2019-10-18] MEDS ORDERED: levETIRAcetam 500 MG TAB GT ONE (00:55)
[2019-10-18] MEDS ORDERED: PHENYTOIN 100 MG/4 ML UDC GT ONE (00:55)
[2019-10-18 14:03] VITALS: BP 110/79
== END 2019-10-18 14:04 ==
LOC: MED 18:39
DX: R56.9 Unspecified convulsions (principal); I10 Essential (primary) hypertension; G40.909 Epilepsy, unspecified, not intractable, without status epilepticus; Z88.0 Allergy status to penicillin; Z88.1 Allergy status to other antibiotic agents; Z88.2 Allergy status to sulfonamides; Z93.1 Gastrostomy status; Z79.899 Other long term (current) drug therapy
CPT/HCPCS: 36415; 36600; 70450; 71045; 80048; 80156; 80184; 80185; 81003; 82803; 85025; 87086; 93005; 99285; Q0092; J1165

== ENCOUNTER 2019-12-10 10:23 | Emergency (ER) | payer OTHER ==
[~2019-12-10] VITALS: Ht 172.7 cm; Wt 83.9 kg
[2019-12-10 10:23] VITALS: BP 124/80
[~2019-12-10 10:23] MED LIST changes: -VITC500 GT
--- NOTE | 2019-12-10 10:29 | NUR ---
54 YEAR OLD FEMALE [place] [facility]. PER EMS PT G TUBE FELL OUT IN THE MORNING WHEN THEY WERE CHANGING HER. [place] WAS PLACED INTO STOMA SITE, SITE CLEAN DRY INTACT AND PINK. PT APHASIC BASELINE FROM PREVIOUS STROKE. PT ON 3L NC, SPO2 98%, RR 21. PT ALERT AND AWAKE, BREATHING EVEN AND UNLABORED, SKIN WARM AND DRY. BED IN LOWEST POSITION, LOCKED, BED RAIL UPX1. PMH - CVA, SEIZURE ALLERGIES - PCN, SULFAS
--- NOTE | 2019-12-10 10:37 | NUR ---
G TUBE REPLACED BY DR WHITEHEAD AT THIS TIME.
--- NOTE | 2019-12-10 11:14 | NUR ---
patient resting with eyes closed, breathing even and unlabored. no distress noted. will continue to monitor.
--- NOTE | 2019-12-10 11:35 | NUR ---
Called Cassy RN at [facility], was informed that pt will be discharged and that transport was being set up.
--- NOTE | 2019-12-10 12:05 | NUR ---
Patient discharged with v/s stable. Written and verbal after care instructions about gastric tube replacement given and explained. Patient verbalized understanding. Ambulance Transport with to [facility]. All questions addressed prior to discharge. Advised to follow up with PMD.
[2019-12-10 12:06] VITALS: BP 131/82
== END 2019-12-10 12:05 | disposition home or self-care (01) ==
LOC: MED 10:23
DX: K94.23 Gastrostomy malfunction (principal); R56.9 Unspecified convulsions; Z88.0 Allergy status to penicillin; Z88.2 Allergy status to sulfonamides; Z88.1 Allergy status to other antibiotic agents; Z79.899 Other long term (current) drug therapy
CPT/HCPCS: 74240; 99283; Q0092